=== PATIENT | female | born 1950 | race Two or more races ===

== ENCOUNTER 2024-12-08 06:16 | Inpatient (IN) | payer OTHER ==
[~2024-12-08] VITALS: Ht 165.1 cm; Wt 107.4 kg
[~2024-12-08 06:16] MED LIST: AML5T PO; ASPI81CH59 PO; ATOR40TA52 PO; BUPR-133 PO; FAMO-68 PO; LOSA-535 PO; METF-372 PO; MULT-1018 PO; OMEP20TA PO
[2024-12-08] MEDS: ceFAZolin 2 GM/D5W50ml 50 ML IV ONE (06:19)
[2024-12-08] MEDS: VANCOMYCIN HCL 1000 MG VL ONE (06:34)
[2024-12-08] MEDS: TRANEXAMIC ACID 20 ML ONE (06:35)
[2024-12-08] MEDS: BUPIVACAINE 0.25% INJ 50ML VIAL ONE ×2 (06:35→07:10)
[2024-12-08] MEDS ORDERED: MORPHINE SULF PF 5 MG/10 ML VIAL ONE (06:41)
[2024-12-08] MEDS ORDERED: KETOROLAC TROMETH 30 MG/ML 1ML VIAL ONE ×3 (06:41→08:53)
[2024-12-08] MEDS: CEFEPIME 1GM/ 50ML 50 ML IV ONE (06:42)
[2024-12-08] MEDS: ACETAMINOPHEN IV 1000 MG/100ML (10MG/ML) IV ONE (07:00)
[2024-12-08] MEDS: GABAPENTIN 300 MG CAP PO ONE (07:00)
[2024-12-08] MEDS: CELECOXIB 100 MG CAP PO ONE (07:00)
[2024-12-08] MEDS: ACETAMINOPHEN IV 100 ML IV ONE (07:06)
[2024-12-08] MEDS: BUPIVACAINE HCL 50 ML ONE (07:10)
[2024-12-08] MEDS ORDERED: ONDANSETRON HCL 4 MG/2 ML VIAL ONE (07:12)
[2024-12-08] MEDS ORDERED: PROPOFOL 10 MG/ML 20 ML IV ONE ×2 (07:12→08:21)
[2024-12-08] MEDS ORDERED: LIDOCAINE 1% INJ PF 5ML AMP ONE (07:12)
[2024-12-08] MEDS ORDERED: GLYCOPYRROLATE 0.2 MG/ML 1ML VIAL ONE (07:12)
[2024-12-08] MEDS: GABAPENTIN 300 MG CAP ONE (07:13)
[2024-12-08] MEDS: CELECOXIB 100 MG CAP ONE (07:13)
[2024-12-08] MEDS ORDERED: MORPHINE SULFATE INJ 2 MG/ml SYRG IV PRN (07:30)
[2024-12-08] MEDS ORDERED: PHENYLEPHRINE HCL 10 MG/ML VL ONE (07:30)
[2024-12-08] MEDS ORDERED: ONDANSETRON HCL 4 MG/2 ML VIAL IV PRN ×2 (07:30→08:45)
[2024-12-08] MEDS ORDERED: SODIUM CHLORIDE LOCK 10 ML ONE ×2 (07:30→07:32)
[2024-12-08] MEDS ORDERED: NITROGLYCERIN 0.4 MG SL TAB SL PRN (07:30)
[2024-12-08] MEDS ORDERED: DEXTROSE (50%) 50ML SYRG IV PRN (07:30)
[2024-12-08 08:35] VITALS: PULSE 87; RESP 22; O2SAT 98
[2024-12-08] MEDS ORDERED: NALOXONE HCL 0.4 MG/ML VIAL IV PRN (08:45)
[2024-12-08] MEDS ORDERED: FLUMAZENIL 0.1 MG/ML INJ 10ML MDV IV PRN (08:45)
[2024-12-08] MEDS ORDERED: hydrALAZINE HCL 20 MG/ML VL IV PRN (08:45)
[2024-12-08] MEDS ORDERED: HYDROmorphone HCL 2 MG/ML VL/or syr IV PRN (08:45)
[2024-12-08] MEDS ORDERED: fentaNYL CITRATE 100 MCG/2 ML VL IV PRN (08:45)
[2024-12-08 11:06] VITALS: PULSE 93; RESP 20; O2SAT 97
[2024-12-08] MEDS: ceFAZolin 1GM/50ML 50 ML IV SCH (11:25)
[2024-12-08] MEDS: MULTIPLE VITAMIN TAB PO SCH (11:28)
[2024-12-08] MEDS: LOSARTAN POTASSIUM 50 MG TAB PO SCH (11:28)
[2024-12-08] MEDS: DOCUSATE SOD 100 MG CAP PO SCH (11:28)
[2024-12-08] MEDS: CEFEPIME 1GM/ 50ML 50 ML IV SCH (11:29)
--- NOTE | 2024-12-08 11:31 | DVH ---
EXAM: XY R KNEE 3V XRAY CLINICAL INDICATION: S/P SURGERY TECHNIQUE: XY R KNEE 3V XRAY Comparison: None FINDINGS/IMPRESSION: There is no evidence of acute fracture or dislocation. Status post right total knee arthroplasty.
[2024-12-08] MEDS: ACCU-CHEK COMFORT CURVE STRIP VI SCH (11:33)
[2024-12-08] MEDS: InsuLIN REG 1unit/0.01ml Soln (100units/ml) SC SCH ×2 (11:36→21:38)
[2024-12-08] MEDS: LACTATED RINGER'S 1,000 ML IV SCH (11:37)
[2024-12-08 13:04] VITALS: BP 146/79; PULSE 93; RESP 20; TEMP 97.3; O2SAT 97
[2024-12-08] MEDS: SODIUM CHLOR 0.9% PF (SALINE LOCK) 10ML VIAL/SYR IV SCH (13:07)
[2024-12-08 15:24] LABS: Hepatitis B Surface Antigen Negative (Negative)
[2024-12-08 15:42] LABS: Hepatitis C Antibody Negative (Negative)
[2024-12-08] MEDS: OXYCODONE W/ ACETAMINOPHEN 5/325MG TABLET PO PRN (16:28)
[2024-12-08 17:00] VITALS: BP 120/75; PULSE 107; RESP 20; TEMP 98.1; O2SAT 97
[2024-12-08] MEDS ORDERED: PATIENTS OWN MEDICATION (Atorvastatin Calcium 40 MG) PO SCH (18:00)
[2024-12-08] MEDS: PANTOPRAZOLE 40 MG TAB PO SCH (18:10)
[2024-12-08] MEDS: HYDROmorphone HCL 2 MG/ML VL/or syr IV PRN (20:20)
[2024-12-08 20:54] VITALS: BP 114/71; PULSE 97; RESP 18; TEMP 98.9; O2SAT 93
[2024-12-08] MEDS: ATORVASTATIN 20 MG TAB PO SCH (21:36)
[2024-12-09 00:25] VITALS: BP 106/47; PULSE 84; RESP 18; TEMP 97.7; O2SAT 93
[2024-12-09 04:35] VITALS: BP 109/50; PULSE 77; RESP 18; TEMP 97.9; O2SAT 93
[2024-12-09] MEDS: FAMOTIDINE 20 MG TAB PO SCH (06:01)
[2024-12-09 06:29] LABS: Hematocrit 29.5 % (36.0-46.0); Hemoglobin 9.8 g/dL (12.2-16.2)
[2024-12-09 06:50] LABS: Alanine Aminotransferase 19 U/L (7-40); Albumin 3.8 g/dL (3.2-4.8); Alkaline Phosphatase 91 U/L (46-116); Anion Gap 12 (5-15); BUN/Creatinine Ratio 20.2 (10.0-20.0); Blood Urea Nitrogen 18 mg/dL (9-23); Calcium 9.7 mg/dL (8.7-10.4); Carbon Dioxide 24 mmol/L (20-31); Chloride 101 mmol/L (98-107); Potassium 4.5 mmol/L (3.5-5.1); Sodium 137 mmol/L (136-145); Total Protein 5.8 g/dL (5.7-8.2)
[2024-12-09 06:51] LABS: Bilirubin, Total 0.4 mg/dL (0.2-1.0)
[2024-12-09 06:52] LABS: Glucose 136 mg/dL (74-106)
[2024-12-09] MEDS ORDERED: PATIENTS OWN MEDICATION (Losartan Potassium 1 TAB) PO SCH (07:00)
--- NOTE | 2024-12-09 08:00 | DVHPN2 ---
Progress Note Date Seen: Dec 09, 2024 Medical Necessity Reason Pt with a Central, PICC or Fol: No Subjective Patient reports: No new complaints Objective vital signs Vital Sign Date Time Temp Pulse Resp B/P (MAP) Pulse Ox O2 Delivery O2 Flow Rate FiO2 12/09/24 07:36 Room Air* 0 21 12/09/24 04:35 97.9 77 18 109/50 (69) 93 97.9 Total Intake and Output 12/08/24 12/08/24 12/09/24 15:00 23:00 07:00 Intake Total 1020 ml 600 ml Balance 1020 ml 600 ml medications Current Medications Medications Dose Ordered Sig/Shakeel Route Start Time Stop Time Status Last Admin Dose Admin Amlodipine Besylate 5 mg QPM PO 12/08/24 18:00 12/08/24 18:10 5 MG Famotidine 40 mg QAM PO 12/09/24 07:00 12/09/24 06:01 40 MG Multivitamins 1 tab DAILY PO 12/08/24 10:00 12/08/24 11:28 1 TAB Patient Own Medication 40 mg QPM PO 12/08/24 18:00 UNV Patient Own Medication 300 mg QAM PO 12/09/24 07:00 Patient Own Medication 1 tab QAM PO 12/09/24 07:00 UNV Sodium Chloride 10 ml Q8HR IV 12/08/24 14:00 12/09/24 06:02 10 ML Oxycodone/ Acetaminophen 1 tab Q4HP PRN PO 12/08/24 07:30 12/08/24 23:55 1 TAB Hydromorphone HCl 1 mg Q2HP PRN IV 12/08/24 07:30 12/09/24 02:20 1 MG Ondansetron HCl 4 mg Q6HP PRN IV 12/08/24 07:30 Docusate Sodium 100 mg Q12HR PO 12/08/24 10:00 12/08/24 21:36 100 MG Nitroglycerin 0.4 mg Q5MINP PRN SL 12/08/24 07:30 Morphine Sulfate 2 mg Q30M PRN IV 12/08/24 07:30 Diagnostic Test (Pha) 1 strip ACHS 12/08/24 11:30 12/09/24 06:03 1 STRIP Insulin Human Regular HS SC 12/08/24 22:00 12/08/24 21:38 2 UNITS Insulin Human Regular AC SC 12/08/24 11:30 12/09/24 06:04 2 UNITS Dextrose 50 ml UD PRN IV 12/08/24 07:30 Cefepime HCl 50 ml @ 12.5 mls/hr DAILY IV 12/08/24 10:00 12/08/24 11:29 12.5 MLS/HR Pantoprazole Sodium 40 mg BID@0600,1700 PO 12/08/24 17:00 12/09/24 06:01 40 MG Aspirin 81 mg BID PO 12/09/24 10:00 Oxycodone HCl 10 mg ONCE PRN PO 12/08/24 08:45 12/08/24 13:06 10 MG Atorvastatin Calcium 40 mg HS PO 12/08/24 22:00 12/08/24 21:36 40 MG Losartan Potassium 100 mg DAILY PO 12/08/24 10:00 12/08/24 11:28 100 MG Examination: GENERAL:Normal, MSK:Abnormal laboratory and microbiology Laboratory Tests 12/09/24 05:10 Test 12/09/24 05:10 Range/Units Serum Glucose 136 H 74-106 mg/dL Problem List/Assessment/Plan Problem List/Assessment/Plan 74 year old female who is s/p Right TKA POD 1 1. Pain control 2. DVT ppx 3. CPM as ordered 4. physical therapy 5. d/c planning for home tomorrow Plan discussed with: Patient Date of Service: Dec 09, 2024 Billing Provider: DIANNA CARVALHO MD Common Visit Codes: NOT BILLABLE LEODAN VELAZQUEZ NP Dec 09, 2024 08:00
[2024-12-09] MEDS: ASPirin-EC 81 mg tab PO SCH (08:16)
[2024-12-09 08:49] VITALS: BP 132/67; PULSE 70; RESP 17; TEMP 97.8; O2SAT 94
--- NOTE | 2024-12-09 09:41 | DVHOP2 ---
Operative Report - 2 Report Details Date: 12/08/24 Preop Diagnosis: Right knee ostearthritis Postop Diagnosis: as above Surgeon: Maynor Carvalho MD Composition Roll Maker And Cutter: Marvin HUNTER Anesthesiologist: Kvng CHIN Anesthesia: Regional Implant: [employer] Porous knee Consent: The patient was informed of the risks and benefits of the procedure. These include but are not limited to complications of anesthesia, postoperative infection, incomplete relief of symptoms, recurrence of symptoms, damage to blood vessels, nerves and tendons, deep venous thrombosis, pulmonary embolism and possible need for repeat surgery in the future. Estimated Blood Loss: 50 cc Name of Procedure Performed 1. Right total knee arthroplasty using computer navigation Procedure Details Procedure Details: INDICATION: This patient has failed non-operative treatments for knee arthritis and is now indicated for a total knee replacement. Preoperatively in the waiting area as well as in the office, I had a long discussion with the patient regarding the plan, the expected outcome, the risks, benefits, and alternatives of surgery. The risks include, but are not limited to, infection (which may require future surgery and removal of implants) , bleeding (which may require a transfusion), damage to nerves, arteries, veins, tendons, muscles and other adjacent structures. Also discussed the possibilities of intraoperative fractures, implant loosening, heterotopic bone formation, and revision for variety of reasons, and medical complications etc. This was discussed at length and consent has been obtained. DESCRIPTION OF PROCEDURE: In the preoperative holding area, the consent was reviewed and the appropriate extremity was verified by the patient and marked with my initials. The patient was then transferred to the operating theatre. Appropriate anesthesia was induced. All bony prominences were well padded. A time out was performed verifying the side and site of surgery according to standard protocol. Preoperative antibiotics were given 10 minutes prior to tourniquet inflation. Tranexamic acid was given. A well padded thigh tourniquet was applied. The extremity was then prepped and draped in the usual sterile fashion. The extremity was exsanguinated and the tourniquet was inflated. We then made a mid-line incision, which we continued to the underlying capsular tissue. We performed a medial parapatellar arthrotomy. We periosteally exposed the proximal tibia, excised the anterior fat pad and synovium from the distal aspect of the femur. We then subluxed the patella and brought the knee up into flexion. The lateral meniscus, ACL, and PCL were released. We used the appropriate guide with attached computer navigation to secure the distal femoral cutting block to the femur with pins and completed the distal femoral cut in 0 degrees to the mechanical axis with an oscillating saw. We removed the distal femoral cutting block and turned our attention to the tibia. We used the extramedullary tibial alignment guide with computer navigation to secure the proximal tibial cutting block to the tibia with pins, setting it for a 2 mm cut from the more involved side, and completed the proximal tibial cut. We then used the spacer block and alignment faisal to check the varus-valgus angle of our cuts and the extension gap. The knee was then balanced in extension to varus/valgus stress. We marked our femoral anatomy, including Dickenson's line and the epicondylar axis. Using that as a rotational guide, we used the sizing guide to size our femur properly, using a stylus to ensure there would be no notching. We then used the AP cutting guide to make our anterior and posterior cuts and chamfer cuts with an oscillating saw. We again checked the flexion and extension gaps and coronal balancing. Next, we sized our tibia and secured a baseplate with appropriate rotation with pins. We placed a trial femur in position and completed preparation of the notch with reamers and box osteotome and placed a trial notch in position. We used trials to choose our liner size and then placed the liner in place and reduced the knee. We used an oscillating saw to resurface the patella, and used a guide to choose the button size and completed patella preparation with the drill. We then placed a trial button in place. At this point, we checked our seven parameters: 1) Limb alignment 2) Extension 3) Flexion against gravity 4) Flexion stability 5) Varus-valgus balancing 6) Component rotation 7) Patella tracking We were satisfied with these and removed all trials with the exception of the baseplate. We completed preparation of the tibia with the appropriate reamer and keel impactor and then removed the baseplate. We placed a bone plug in the distal femur and then irrigated and dried all bony surfaces and injected our pain cocktail. impacted our tibial, femoral and patellar components into position. We impacted our liner and reduced the knee and held it with axial loading. We released the tourniquet and achieved hemostasis where necessary. A dilute betadine solution (17.5mL in 500mL saline) was used to wash the joint and left to sit for 3 minutes. This was then irrigated out with copious amounts of pulse lavage. We sprinkled 1g vancomycin powder below the fascia and 1g above the fasc ia. We copiously irrigated the knee. We re-checked our seven parameters. We closed our capsular incision with a PDS style suture. We irrigated further. We closed the subcutaneous tissue with Vicryl suture and re-approximated the skin with emilie. We verified all lower extremity compartments were soft and compressible and that we had intact distal pulses. We wrapped the extremity in sterile Webril and teo bandage. The patient was transferred to the recovery room in stable condition. Condition Good Disposition Still a Patient MAYNOR CARVALHO MD Dec 09, 2024 09:41
--- NOTE | 2024-12-09 11:37 | DVHINCON2 ---
Date of service: Dec 09, 2024 Reason for Consultation Medical management while in the hospital History of Present Illness This is a 74-year-old female with osteoarthritis of the knees, hyperlipidemia, anxiety disorder admitted by orthopedic surgeon underwent successful right knee surgery. Postop patient is admitted to the hospital and hospitalist consultation is requested for medical management. Currently patient is comfortable pain is tolerable. Denies any chest pain or shortness for breath. Other review of systems reviewed normal. Past Medical History Hypertension, anxiety disorder, hypercholesterolemia, osteoarthritis Past Surgical History Knee surgery Family History: FH: Crohn's disease G8 MOTHER Thyroid disease G8 FATHER Allergies: Coded Allergies: Flu Virus Vaccine (Unverified Allergy, Unknown, rash, fever, n/v/d, 12/05/24) eggs in flu vaccine per patient report but ok to eat eggs Home Meds Reported Medications Amlodipine Besylate (NORVASC TABLET) 5 Mg Tb, 1 TAB PO QPM, #90 TAB 3 Refills 12/05/24 Omeprazole (Gnp Omeprazole) 20 Mg Tab, 5 MG PO QAM, TAB 12/05/24 Multiple Vitamin (Multivitamins) Tab, 1 TAB PO DAILY, #30 TAB 2 Refills 12/05/24 Metformin Hydrochloride (Metformin Hcl) 1,000 Mg Tab, 1 TAB PO BID, #180 TAB 3 Refills 12/05/24 Losartan Potassium (Losartan Potassium) 100 Mg Tab, 1 TAB PO QAM, #90 TAB 3 Refills 12/05/24 Famotidine (Gnp Acid Chicken Tender Maximum) 20 Mg Tab, 40 MG PO QAM, TAB 12/05/24 Bupropion Hcl (Bupropion Hcl Er) 150 Mg Tab, 300 MG PO QAM, TAB 12/05/24 Atorvastatin Calcium (ATORVASTATIN CALCIUM) 40 Mg Tab, 40 MG PO QPM, TAB 12/05/24 Aspirin (Aspirin Low Dose) 81 Mg Chw, 1 TAB PO DAILY, #90 TAB 3 Refills 12/05/24 Current Medications Current Medications Medications (Trade) Dose Ordered Sig/Shakeel Route PRN Reason Start Time Stop Time Status Last Admin Amlodipine Besylate (Norvasc Tablet) 5 mg QPM PO 12/08/24 18:00 12/08/24 18:10 Famotidine (Pepcid Tablet) 40 mg QAM PO 12/09/24 07:00 12/09/24 06:01 Patient Own Medication 40 mg QPM PO 12/08/24 18:00 UNV Patient Own Medication 300 mg QAM PO 12/09/24 07:00 Patient Own Medication 1 tab QAM PO 12/09/24 07:00 UNV Sodium Chloride (Saline Lock Ns) 10 ml Q8HR IV 12/08/24 14:00 12/09/24 06:02 Insulin Human Regular (InsuLIN R) HS SC 12/08/24 22:00 12/08/24 21:38 Pantoprazole Sodium (Protonix Tablet) 40 mg BID@0600,1700 PO 12/08/24 17:00 12/09/24 06:01 Aspirin (Ecotrin Enteric Coated Tablet) 81 mg BID PO 12/09/24 10:00 12/09/24 08:16 Atorvastatin Calcium (Lipitor) 40 mg HS PO 12/08/24 22:00 12/08/24 21:36 Ferrous Sulfate 300 mg DAILY PO 12/10/24 10:00 UNV Ascorbic Acid (Vitamin C Tablet) 500 mg DAILY PO 12/10/24 10:00 UNV Review of Systems No complaints of headache dizziness or lightheadedness. No chest pain or shortness for breath. Other review of systems reviewed normal Vital Signs Vital Signs Date Time Temp Pulse Resp B/P (MAP) Pulse Ox O2 Delivery O2 Flow Rate FiO2 12/09/24 08:49 97.8 70 17 132/67 (88) 94 97.8 12/09/24 07:36 Room Air* 0 21 Physical Exam Comfortable in bed. Alert awake oriented x3. HEENT neck supple no JVD. Heart regular rate rhythm S1-S2. Lungs fair air movement without rales wheezes. Abdomen soft nontender positive bowel sounds. Extremities no edema positive pulses Labs/Diagnostic Data Labs Test 12/09/24 05:53 12/09/24 05:10 12/08/24 14:10 Range/Units POC Glucose 157 H 70-106 mg/dl Hemoglobin 9.8 L 12.2-16.2 g/dL Hematocrit 29.5 L 36.0-46.0 % Sodium Level 137 136-145 mmol/L Potassium Level 4.5 3.5-5.1 mmol/L Chloride Level 101 98-107 mmol/L Carbon Dioxide Level 24 20-31 mmol/L Anion Gap 12 5-15 Blood Urea Nitrogen 18 9-23 mg/dL Creatinine 0.89 0.550-1.02 mg/dL Glomerular Filtration Rate Calc 68 >90 mL/min BUN/Creatinine Ratio 20.2 H 10.0-20.0 Serum Glucose 136 H 74-106 mg/dL Calcium Level 9.7 8.7-10.4 mg/dL Total Bilirubin 0.4 0.2-1.0 mg/dL Aspartate Amino Transferase (AST) 26 13-40 U/L Alanine Aminotransferase (ALT) 19 7-40 U/L Alkaline Phosphatase 91 46-116 U/L Total Protein 5.8 5.7-8.2 g/dL Albumin 3.8 3.2-4.8 g/dL Hepatitis B Surface Antigen Negative Negative Hepatitis C Antibody Negative Negative Assessment Postop patient is clinically stable. Encouraged physical therapy activity as much as possible. We will resume all her home medications. Pain and nausea medications. Start her on iron supplementation given the hemoglobin is mildly low. Otherwise continue rest of supportive care and treatment if she remains stable consider discharge home tomorrow per orthopedic recommendations. Discussed with the nurse and patient at bedside regarding care plan. Problems(with codes): (1) Hypertension (2) Hypercholesterolemia (3) GERD (gastroesophageal reflux disease) (4) Anxiety disorder (5) Status post right knee surgery Plan discussed with: Patient BONITA BULL MD Dec 09, 2024 11:37
[2024-12-09 13:00] VITALS: BP 126/64; PULSE 72; RESP 17; TEMP 98; O2SAT 95
[2024-12-09 17:00] VITALS: BP 143/74; PULSE 83; RESP 17; TEMP 98; O2SAT 92
[2024-12-09 21:00] VITALS: BP 111/49; PULSE 66; RESP 18; TEMP 98; O2SAT 93
[2024-12-10 01:00] VITALS: BP 99/70; PULSE 79; RESP 18; TEMP 98.1; O2SAT 96
[2024-12-10 05:00] VITALS: BP 141/75; PULSE 85; RESP 18; TEMP 97.9; O2SAT 99
[2024-12-10 05:28] LABS: Hematocrit 29.6 % (36.0-46.0); Hemoglobin 9.7 g/dL (12.2-16.2)
--- NOTE | 2024-12-10 07:45 | DVHDS2 ---
Discharge Summary Date of Admission Dec 08, 2024 at 07:46 Date of Discharge: Dec 10, 2024 Wounds: 1. You will likely have a gel-type dressing over your wound, you may keep this on for 7-14 days after leaving the hospital until your first post-op visit, unless it becomes soiled or your skin becomes irritated. If a wound vac dressing is placed on your knee this is to be left in place for one week and will be changed as needed. After your remove the dressing or wound vac, the home health nurse may place clean dry dressing over your wound. Keep wound covered, clean and dry for two weeks. 2. Reynolds will be removed during your initial post-op visit. If you have concerns about our wound, please call the office immediately. If nervous about staple removal can take pain pill one hour prior to appointment. 3. If there is drainage from your wound, change the dressing daily until it stops. If drainage lasts more than 10 days, call our office. 4. Low grade (up to 100 degrees) fever is common for the first week after surgery. You should take your temperature daily. If you have fevers of 101 or more, please call the office. Labs/Diagnostic Data: Laboratory Results Test 12/10/24 05:57 12/10/24 04:13 12/09/24 05:10 12/08/24 14:10 POC Glucose 104 mg/dl (70-106) Hemoglobin 9.7 g/dL (12.2-16.2) Hematocrit 29.6 % (36.0-46.0) Sodium Level 137 mmol/L (136-145) Potassium Level 4.5 mmol/L (3.5-5.1) Chloride Level 101 mmol/L (98-107) Carbon Dioxide Level 24 mmol/L (20-31) Anion Gap 12 (5-15) Blood Urea Nitrogen 18 mg/dL (9-23) Creatinine 0.89 mg/dL (0.550-1.02) Glomerular Filtration Rate Calc 68 mL/min (>90) BUN/Creatinine Ratio 20.2 (10.0-20.0) Serum Glucose 136 mg/dL (74-106) Calcium Level 9.7 mg/dL (8.7-10.4) Total Bilirubin 0.4 mg/dL (0.2-1.0) Aspartate Amino Transferase (AST) 26 U/L (13-40) Alanine Aminotransferase (ALT) 19 U/L (7-40) Alkaline Phosphatase 91 U/L (46-116) Total Protein 5.8 g/dL (5.7-8.2) Albumin 3.8 g/dL (3.2-4.8) Hepatitis B Surface Antigen Negative (Negative) Hepatitis C Antibody Negative (Negative) Other Laboratory Tests 12/10/24 04:13 12/09/24 05:10 Brief Hx & Hospital Course: s/p right total knee arthroplasty Condition at Discharge: Good Final Diagnosis/Problems List as above Discharge Disposition: Home Discharge Instruct/Medications Diet: Regular Diet comment: may advance diet as tolerated Activity: See Comment Activity comment: 1.CPM as ordered, goal is for 6 hours every day for the first 21 days of your recovry. Can break it up in to increments of 2-3 hours at a time. Most hospitals will start at 45 degrees of flexion, and increase by 5 degrees daily until the machine has been maxed out. The goal is to be at 90 degrees by first postop visit in 2 weeks. 2.No pool, jacuzzi, beach, owen or bath for 6 weeks. Once all scabbing has fallen off patient can begin soaking and submerging knee under water for 15 minute periods at a time. 3.Physical therapy is critical in the first 2 weeks. If having issues with scheduling please inform office. 4.No running or jumping for 6 weeks. 5.Can walk and bear as much weight on the surgical leg as tolerated. No restrictions in regards to walking or standing. Follow Up/Referral: 1.Driving is not permitted within the first 2 weeks. 2.Your first postoperative visit will take place 2 weeks after discharge. Please call the office once you are home from the hospital to arrange this appointment. 3.Antibiotic preventative treatment is required before dental or other invasive procedures. Please ask your surgeon about this at your first postoperative visit. If you experience chest pain, shortness of breath or severe painful calf swelling, go to the nearest emergency room to be evaluated. Please call our office once your situation is stabilized. Medications: 1.You will be discharged with pain medication, a blood thinner (unless you were previously on a blood thinner prior to surgery) and stool softener. Please follow the instructions regarding these medications as provided by your nurse at the hospital upon discharge. 2.Blood clots in the leg are a known complication of surgery. It is very important that you take the medication to protect against clots. Depending on what you are discharged on typically it is Lovenox 40mg daily for 2 weeks or Aspirin 81mg twice daily for 4 weeks. After you finish this, you should then take baby Aspirin (81mg) once daily for 2 weeks. 3.You should restart all of your prescription medications once discharged from the hospital/surgery center unless specifically instructed otherwise. 4.Herbal supplements may be restarted 2 weeks after surgery. 5.If you have been given Coumadin as a blood thinner, please follow up with your antenna engineer during the first two weeks after surgery to review medications and overall medical well-being. 6.Please note that narcotic pain medication may cause constipation. Please remember to take stool softeners (Colace) when using narcotics to help reduce the change of constipation. You should not use alcohol together with narcotic medication. Scheduled Amlodipine Besylate (Norvasc Tablet), 1 TAB PO QPM, (Reported) Aspirin (Aspirin Low Dose), 1 TAB PO DAILY, (Reported) Atorvastatin Calcium (Atorvastatin Calcium), 40 MG PO QPM, (Reported) Bupropion Hcl (Bupropion Hcl Er), 300 MG PO QAM, (Reported) Famotidine (Gnp Acid Building Appraiser Maximum), 40 MG PO QAM, (Reported) Losartan Potassium (Losartan Potassium), 1 TAB PO QAM, (Reported) Metformin Hydrochloride (Metformin Hcl), 1 TAB PO BID, (Reported) Multiple Vitamin (Multivitamins), 1 TAB PO DAILY, (Reported) Omeprazole (Gnp Omeprazole), 5 MG PO QAM, (Reported) Discharge Statement: "Patient was advised to return to the ER or call 911 if any headaches, dizziness, shortness of breath, chest pain, abdominal pain, bleeding, fevers, or worsening of medical condition. Patient was counseled about treatment plan, medications, possible side effects, patientverbalized understanding. All questions were answered to the best of my ability. This discharge took greater then 30 minutes in planning, reviewing documentation, counseling the patient, and discussing with other team members." ASSESSMENT ASSESSMENT Assessment as above LEODAN VELAZQUEZ NP Dec 10, 2024 07:45
[2024-12-10 08:51] VITALS: BP 120/54; PULSE 70; RESP 17; TEMP 97.4; O2SAT 90
[2024-12-10] MEDS: FERROUS SULFATE 300 MG/5 ML ORAL LIQ PO SCH (08:51)
[2024-12-10] MEDS: ASCORBIC ACID 500 MG TAB PO SCH (08:54)
== END 2024-12-10 10:51 | disposition home or self-care (01) | DRG 470 ==
LOC: SUR 06:16 → OVERFLOW 07:46 → WEST WING 10:57
PROVIDERS: ADMIT Orthopaedic Surgery Adult Reconstructive Orthopaedic Surgery; ATTEND Orthopaedic Surgery Adult Reconstructive Orthopaedic Surgery
PROC: 8E0YXBZ Computer Assisted Procedure of Lower Extremity (ICD-10-PCS; 2024-12-08)
PROC: 0SRC0JZ Replacement of Right Knee Joint with Synthetic Substitute, Open Approach (ICD-10-PCS; principal; 2024-12-08 07:13)
DX: M17.0 Bilateral primary osteoarthritis of knee (principal); F41.9 Anxiety disorder, unspecified; I10 Essential (primary) hypertension; K21.9 Gastro-esophageal reflux disease without esophagitis; E78.00 Pure hypercholesterolemia, unspecified; Z88.7 Allergy status to serum and vaccine; Z79.82 Long term (current) use of aspirin; Z79.899 Other long term (current) drug therapy
CPT/HCPCS: 36415; 73562; 80053; 82962; 85014; 85018; 86803; 86850; 86900; 86901; 87340; 97110; 97116; 97163; G0378; J0131; J0169; J1100; J1815; J1885; J2405; J2704; J3490